=== PATIENT | female | born 1935 | race Caucasian/White ===

== ENCOUNTER 2016-10-19 16:06 | Emergency (ER) | payer OTHER ==
[~2016-10-19] VITALS: Ht 149.9 cm; Wt 62.4 kg
[~2016-10-19 16:06] MED LIST: ALEVE220 MG PO; ALTACE5 MG PO; BACTRIM,SEPT1 TABLET PO; BIAXIN500 MG PO; CALCIUM 600 +1 EAC4 PO; CATAPRES0.1 MG PO; CRESTOR10 MG PO; EFFEXOR XR75 MG PO; JANUMET 50/11 TABLET PO; KEFLEX500 MG PO; LO-DOSE ASPIRIN81 M2 PO; MEDROL DOSEPAK4 MG PO; MELOXICAM7.5 MG PO; METFORMIN HCL1000 MG PO; OMEPRAZOLE40 M1 PO; PERCOCET 5/31 TABLET PO; SIMVASTATIN40 MG PO; SYNTHROID100 MCG PO; VESICARE5 MG PO; ZOFRAN ODT4 MG PO; ZYRTEC10 M3 PO; [UNRECOGNIZED DRUG - OTHER] BOTH EYES
[2016-10-19 17:07] LABS: HEMATOCRIT 39.4 % (36.0-46.0); MCH 23.8 PG (29.0-34.0); MCHC 30.7 G/DL (30.0-36.0); MCV 77.6 FL (83-99); MEAN PLAT.VOLUME 12.7 uM^3 (9.5-12.4); PLATELET COUNT 252 K/uL (156-360); RBC DIS.WIDTH-CV 15.5 % (11.8-14.6); RBC DIS.WIDTH-SD 43.6 % (39-53); RED BLOOD COUNT 5.08 M/uL (3.80-5.20); WHITE BLOOD COUNT 8.3 K/uL (4.1-10.2)
[2016-10-19 17:30] LABS: CHLORIDE 107 mEq/L (99-109)
[2016-10-19 17:31] LABS: POTASSIUM 3.6 mEq/L (3.7-5.4); SODIUM 146 mEq/L (136-147)
[2016-10-19 17:32] LABS: GLUCOSE 75 mg/dL (70-99)
[2016-10-19 17:34] LABS: ANION GAP 10 MEQ/L (2-14)
[2016-10-19 17:36] LABS: GFR ESTIMATE (CALCULATED) > 59 mL/min/
[2016-10-19 17:37] LABS: UREA NITROGEN (BUN) 11 mg/dL (9-23)
[2016-10-19 17:43] LABS: TROP-I INTERPRETATION NEGATIVE; TROPONIN-I < 0.01 ng/mL (0.0-0.30)
[2016-10-19] MEDS ORDERED: VALIUM5 MG PO (20:54)
[2016-10-19] MEDS ORDERED: ULTRAM50 MG PO (20:54)
[2016-10-19 21:27] VITALS: BP 211/71
== END 2016-10-19 21:41 | disposition home or self-care (01) ==
LOC: EME 16:06
DX: I10 Essential (primary) hypertension (principal); M50.323 Other cervical disc degeneration at C6-C7 level; E11.9 Type 2 diabetes mellitus without complications; Z79.84 Long term (current) use of oral hypoglycemic drugs; Z79.82 Long term (current) use of aspirin
CPT/HCPCS: 71020; 71275; 72040; 80048; 84484; 85027; 93005; 99281; 99285

== ENCOUNTER 2017-07-22 12:53 | Emergency (ER) | payer OTHER ==
[~2017-07-22] VITALS: Ht 149.9 cm; Wt 62.8 kg
[~2017-07-22 12:53] MED LIST changes: +ULTRAM50 MG PO; +VALIUM5 MG PO
[2017-07-22 13:31] LABS: APPEARANCE CLOUDY ((CLEAR)); BILIRUBIN NEGATIVE; BLOOD NEGATIVE; COLOR AMBER ((YELLOW)); GLUCOSE (STRIP) NEGATIVE; KETONES 5; LEUKOCYTES LARGE; NITRITE POSITIVE; PROTEIN (STRIP) NEGATIVE; SPECIFIC GRAVITY 1.017 (1.000-1.030); UROBILINOGEN 0.2 MG/DL (0.2-1.0)
[2017-07-22 13:31] LABS: HEMATOCRIT 36.7 % (36.0-46.0); HEMOGLOBIN 11.5 G/DL (11.9-15.5); MCH 25.7 PG (29.0-34.0); MCHC 31.3 G/DL (30.0-36.0); MCV 81.9 FL (83-99); PLATELET COUNT 226 K/uL (156-360); RBC DIS.WIDTH-CV 15.8 % (11.8-14.6); RBC DIS.WIDTH-SD 47.3 % (39-53); RED BLOOD COUNT 4.48 M/uL (3.80-5.20); WHITE BLOOD COUNT 10.1 K/uL (4.1-10.2)
[2017-07-22 13:40] LABS: BACTERIA RARE /HPF; EPITHELIAL CELLS RARE /HPF; HYALINE CASTS 15-20 /LPF; MUCUS TRACE /LPF; RED BLOOD CELLS 0-5 /HPF (0-5); UCUL ADDED? YES; WHITE BLOOD CELLS TNTC /HPF (0-5)
[2017-07-22 13:40] LABS: CHLORIDE 108 mEq/L (99-109); SODIUM 141 mEq/L (136-147)
[2017-07-22 13:42] LABS: GLUCOSE 113 mg/dL (70-99)
[2017-07-22 13:46] LABS: CREATININE 0.9 mg/dL (0.6-1.3); GFR ESTIMATE (CALCULATED) > 59 mL/min/
[2017-07-22 13:47] LABS: UREA NITROGEN (BUN) 16 mg/dL (9-23)
[2017-07-22] MEDS ORDERED: KEFLEX500 MG PO (15:49)
[2017-07-22 18:00] VITALS: BP 121/59
== END 2017-07-22 18:00 | disposition home or self-care (01) ==
LOC: EME 12:53
DX: N39.0 Urinary tract infection, site not specified (principal); K59.00 Constipation, unspecified; J45.909 Unspecified asthma, uncomplicated; E11.9 Type 2 diabetes mellitus without complications; I10 Essential (primary) hypertension; Z79.84 Long term (current) use of oral hypoglycemic drugs; Z79.82 Long term (current) use of aspirin; Z88.0 Allergy status to penicillin; Z88.8 Allergy status to other drugs, medicaments and biological substances
CPT/HCPCS: 74176; 80048; 81003; 85027; 87077; 87086; 87186; 99281; 99283

== ENCOUNTER 2017-12-12 09:56 | Emergency (ER) | payer OTHER ==
[~2017-12-12] VITALS: Ht 147.3 cm; Wt 63.4 kg
[2017-12-12 09:57] VITALS: BP 146/97
[2017-12-12] MEDS ORDERED: NAPROSYN250 MG PO (10:53)
[2017-12-12] MEDS ORDERED: FLEXERIL10 MG PO (10:53)
[2017-12-12] MEDS ORDERED: LIDODERM 5% P1 PATCH TD (10:53)
== END 2017-12-12 11:00 | disposition home or self-care (01) ==
LOC: EME 09:56
DX: S39.012A Strain of muscle, fascia and tendon of lower back, initial encounter (principal); S16.1XXA Strain of muscle, fascia and tendon at neck level, initial encounter; W01.0XXA Fall on same level from slipping, tripping and stumbling without subsequent striking against object, initial encounter; X50.1XXA Overexertion from prolonged static or awkward postures, initial encounter; I10 Essential (primary) hypertension; E11.9 Type 2 diabetes mellitus without complications; Z79.84 Long term (current) use of oral hypoglycemic drugs; Z79.82 Long term (current) use of aspirin; Z90.711 Acquired absence of uterus with remaining cervical stump
CPT/HCPCS: 99281; 99283